=== PATIENT | male | born 1955 | race Caucasian/White ===

== ENCOUNTER → 2019-11-27 | Outpatient (CLI) | payer MEDICARE ==
--- NOTE | 2019-11-27 14:08 | KCIC ---
Abdominal aortic ultrasound without comparison for abdominal aortic aneurysm, screening. TECHNIQUE AND FINDINGS: Real-time grayscale and color Doppler evaluation of the abdominal aorta and iliac arteries is performed. The proximal aorta and iliac arteries are obscured however, due to overlying bowel gas and abdominal girth. The mid and distal aorta are nonaneurysmal, with mild multifocal atherosclerosis. No hemodynamically significant stenosis is seen. Diameter of the mid aorta is 2.0 cm in diameter of the distal aorta is 1.7 cm. IMPRESSION: 1. No evidence of abdominal aortic aneurysm, though the proximal aorta and iliac arteries are not well depicted. Electronically signed by: Michelet Bueno MD (11/27/2019 2:05 PM) [facility]
== END | disposition home or self-care (01) ==
LOC: KCIC US 07:58
PROVIDERS: ATTEND Family Medicine
DX: Z13.6 Encounter for screening for cardiovascular disorders (principal)
CPT/HCPCS: 76770

== ENCOUNTER → 2020-03-22 | Outpatient (CLI) | payer MEDICARE ==
[~2020-03-22] MED LIST: GLIP10TA13 PO; METF500T16 PO; REGADENOSON 0.4 MG/5 ML DISP.SYRIN. IV ONE
--- NOTE | 2020-03-22 10:02 | CARD ---
MR#: [id number] Date of Study: 03/22/2020 Ordering Physician: YUSEF BOOTH, Referring Physician: YUSEF BOOTH Tech: Angelina Garner RDCS APPROVED REPORT EXAM: Two-dimensional and M-mode echocardiogram with Doppler and color Doppler. Other Information Quality : Good Rhythm : Atrial Fibrillation INDICATION Atrial Fibrillation 2D DIMENSIONS RVDd3.0 (2.9-3.5cm)Left Atrium(2D)4.4 (1.6-4.0cm) IVSd1.0 (0.7-1.1cm)Aortic Root(2D)3.5 (2.0-3.7cm) LVDd5.7 (3.9-5.9cm)LVOT Diameter2.4 (1.8-2.4cm) PWd1.0 (0.7-1.1cm)LVDs4.0 (2.5-4.0cm) FS (%) 30.0 %SV88.7 ml LVEF(%)55.0 (>50%) Aortic Valve AoV Peak Leonidas.166.0cm/sAoV VTI27.5cm AO Peak GR.11.0mmHgLVOT Peak Leonidas.92.4cm/s AO Mean GR.5mmHgAVA (VMAX)2.42cm2 PHYLLIS (VTI)2.93ar2MS P 1/2 Zkwo222hu Mitral Valve MV E Nwfvtpby072.0cm/sMV DECEL QVQK267ng MV A Velocity2.8cm/sE/A Ratio43.9 Tricuspid Valve TR P. Mvxxpryz607wo/sRAP GJNHZOTV9ooDa TR Peak Gr.83zuEhOAUJ83vyAr Pulmonary Vein S1 Zelagrxj13.7cm/sD2 Fsymuxgb35.5cm/s LEFT VENTRICLE The left ventricle is normal size. There is normal left ventricular wall thickness. Left ventricle sy stolic function is normal. The Ejection Fraction is 55%. There is normal LV segmental wall motion. RIGHT VENTRICLE The right ventricle is normal size. The right ventricular systolic function is normal. ATRIA The left atrium is mildly dilated. The right atrium is moderately dilated. The interatrial septum is intact with no evidence for an atrial septal defect or patent foramen ovale as noted on 2-D or Dopple r imaging. AORTIC VALVE The aortic valve is mildly thickened but opens well. Doppler and Color Flow revealed mild aortic regu rgitation. There is no significant aortic valvular stenosis. MITRAL VALVE The mitral valve is calcified but opens well. There is no evidence of mitral valve prolapse. There is no mitral valve stenosis. Doppler and Color-flow revealed mild mitral regurgitation. TRICUSPID VALVE The tricuspid valve is normal in structure and function. Doppler and Color Flow revealed trace to mil d tricuspid regurgitation. There is moderate pulmonary hypertension. The PA pressure was estimated at 45 mmHg. There is no tricuspid valve stenosis. PULMONIC VALVE The pulmonic valve is not well visualized. Doppler and Color Flow revealed trace pulmonic valvular re gurgitation. There is no pulmonic valvular stenosis. GREAT VESSELS The aortic root is normal in size. The ascending aorta is normal in size. The IVC is normal in size a nd collapses >50% with inspiration. PERICARDIAL EFFUSION There is no evidence of significant pericardial effusion. Critical Notification Critical Value: No <Conclusion> Left ventricle systolic function is normal. The Ejection Fraction is 55%. There is normal LV segmental wall motion. Mild aortic regurgitation. Mild mitral regurgitation. Trace to mild tricuspid regurgitation. There is moderate pulmonary hypertension. The PA pressure was estimated at 45 mmHg. There is no evidence of significant pericardial effusion. Signed by : Yusef Booth, Electronically Approved : 03/22/2020 10:01:57
--- NOTE | 2020-03-22 12:03 | RAD ---
MR#: [id number] Date of Study: 03/22/2020 Ordering Physician: YUSEF BOOTH, Referring Physician: ABENA MEADOWS Tech: RT Ethel Bryant) (N) APPROVED REPORT Test Type: Pharmacological Stress Nurse/Tech: RT Ethel Bryant) (N) Cardiac History: permanent atrial fibrillation Medications: see EHR Medical History: parkinson white syndrome dx 35 years ago, quit smoking 14 years ago, diabetic Resting ECG: atrial fibrillation Resting Heart Rate: 77 bpm Resting Blood Pressure: 134/82mmHg Pretest Chest Pain: None Nurse/Tech Notes Consent: The procedure was explained to the patient in lay terms. Informed consent was witnessed. David eout was entered into [email or web address]. History and Stress Test performed by RT Ethel Bryant) (N) Pharm. Details Pharmacologic stress testing was performed using 0.4mg per 5ml of regadenoson given intravenously ove r 7-10 seconds. POST EXERCISE Reason for Termination: Infusion complete Max HR: 132 bpm Max Blood Pressure: 129/80mmHg Chest Pain: No. INTERPRETATION Stress EKG Conclusion: Baseline EKG showed atrial fibrillation Non-diagnostic changes at peak stress . Imaging Protocol IMAGE PROTOCOL: Rest Tc-99m/stress Tc-99m 1 day Rest: Stress: Viability: Radiopharm.Tc99m RpslhqrszFu69e Sestamibi Ygml05tQl 33mCi Duration 15min. 10min. Img Date 03/22/2020 03/22/2020 Inj-Img [id number]. 60min. Rest Admin Site:IV - Right AntecubitalAdministrator:RT Ethel Bryant)(N) Stress Admin Site: IV - Right AntecubitalAdministrator: RT Ethel Bryant)(N) STRESS DATA End Diast. Vol.165.0mlAv. Heart Rate75.0bpm End Syst. Vol.61.0mlCO Index BSA0.0L/min Myocardial Anjg680.0gEject. Ovbnmqyx01.0% Stress Rates Pk. Fill Rate3.44EDV/secLVtime Pk. Fill 123.03msec Pk. Empty Rate3.60ESV/secLVtime Pk. Amhuc419.61msec 1/3 Pk. Fill1.68EDV/sec Stress Scores Regional WT0.00Summed WT2.00 Regional WM0.00Summed WM2.00 Study quality was good. Left Ventricular size was Normal at Rest and Stress. Lung uptake was . Left Ventricular ejection fraction is 63%. The rest and stress images show normal perfusion, normal contraction and thickening. LV Perf. Quant 17 Seg. SSS1.00 17 Seg. SRS7.00 17 Seg. SDS0.00 Stress Defect Extent (% LAD)2.50Rest Defect Extent (% LAD)6.90Rev. Defect Extent (% LAD)0.00 Stress Defect Extent (% LCX) 7.50Rest Defect Extent (% LCX)20.00Rev. Defect Extent (% LCX)0.00 Stress Defect Extent (% RCA)2.20Rest Defect Extent (% RCA)0.00Rev. Defect Extent (% RCA)0.00 Stress Defect Extent (% SIMONA)6.50Rest Defect Extent (% SIMONA)12.60Rev. Defect Extent (% SIMONA)0.00 Conclusion 1. Regadenoson cardioisotope stress test did not show any evidence of ischemia or infarct. 2. Normal left ventricular systolic function with ejection fraction calculated at 63%. 3. Low risk for cardiac events. Signed by : Yusef Booth, Electronically Approved : 03/22/2020 12:03:17
== END | disposition home or self-care (01) ==
LOC: NM 08:36
PROVIDERS: ATTEND Internal Medicine Cardiovascular Disease
DX: I08.3 Combined rheumatic disorders of mitral, aortic and tricuspid valves (principal); I48.21 Permanent atrial fibrillation
CPT/HCPCS: 78452; 93017; 93306; A9500; J2785